=== PATIENT | female | born 1995 | race Caucasian/White ===

== ENCOUNTER 2017-09-18 08:34 | Emergency (ER) | payer BC, OTHER, SELFPAY ==
[2017-09-18] MEDS ORDERED: Ondansetron HCl/PF 4 MG/2 ML Vial ONE (09:06)
[2017-09-18 09:07] LABS: #Basophils 0.1 thou/uL (0.0-0.2); #Eosinphils 0.1 thou/uL (0.0-0.7); #Lymphocytes 2.6 thou/uL (1.20-3.40); #Neutrophils 7.1 thou/uL (1.40-6.50); %Basophils 0.8 % (0.0-1.0); %Eosinophils 1.1 % (0.0-10.0); %Lymphocytes 23.8 % (28.0-48.0); %Monocytes 8.9 % (0.0-4.0); Mean Platelet Volume 6.6 fL (7.4-10.4); Red Blood Cell (RBC) Count 4.96 mill/uL (4.00-5.20); White Blood Cell (WBC) Count 10.9 thou/uL (4.8-10.8)
[2017-09-18] MEDS ORDERED: Morphine 10 MG/ML VIAL ONE (09:07)
[2017-09-18 09:22] LABS: ALT (SGPT) 12 U/L (8-55); AST (SGOT) 14 U/L (5-30); Alkaline Phosphatase 71 U/L (40-150); Anion Gap 13 mmol/L (10-20); BUN (Urea Nitrogen) 10 mg/dL (8.4-21.0); Bilirubin, Total 0.3 mg/dL (0.2-1.2); Calc. Creatinine Clearance 0 mL/min (70-130); Calcium 9.3 mg/dL (7.8-10.44); Carbon Dioxide 18 mmol/L (22-29); Chloride 107 mmol/L (98-107); Estimated GFR-MDRD Greater than 90; Globulin 2.9 g/dL (2.4-3.5); Protein, Total 6.8 g/dL (6.0-8.3)
[2017-09-18 09:51] LABS: Lactic Acid - Sepsis 1.2 mmol/L (0.5-2.2)
[2017-09-18 11:19] LABS: Bilirubin Negative (Negative); Blood, Urine Negative (Negative); Glucose, Urine (Dipstick) Negative (Negative); Ketone, Urine Negative (Negative); Nitrite Negative (Negative); Protein, Urine (Dipstick) Negative (Neg-Trace); Urobilinogen 0.2 mg/dL (0.2-1.0)
[2017-09-18 11:22] LABS: Bacteria/HPF Rare-Few HPF (None Seen); Hyaline Casts/LPF 0-3 HYALINE CAST LPF (0-3 Hyaline); RBC/HPF 0-3 HPF (0-3); Squamous Epithelial 0-3 HPF (0-3); WBC/HPF 0-3 HPF (0-3)
--- NOTE | 2017-09-18 11:32 | CT ---
CT OF ABDOMEN AND PELVIS: Date: 09-18-17 Comparison: None. History: 21-year-old female with generalized abdominal pain. Technique: Serial axial CT imaging obtained at 5 mm intervals from the lung bases through the pubic symphysis with IV contrast. Coronal reformatted imaging obtained. FINDINGS: The lack of oral contrast limits assessment of the bowel. The appendix is visualized and appears wit hin normal limits. The imaged lung bases are unremarkable. No free intraperitoneal air or fluid seen. There is a tiny f at containing umbilical hernia. There is a small focal area of hypodensity within the ventral aspect of the left lobe of the liver a long the falciform ligament on image 27 suggesting a focal area of fatty infiltration. The gallbladd er, spleen, pancreas, adrenal glands, and kidneys are unremarkable. There is significant stool within the sigmoid colon and rectum. There is small volume fluid noted wi thin nondilated loops of distal small bowel. No evidence for small or large bowel obstruction. There is low density/liquid appearing material within the colon from the cecum to the level of the s plenic flexure. The vascular structures of the abdomen/pelvis appear patent. No pelvic retroperitonea or mesenteric lymphadenopathy is seen. The patient's reported NuvaRing is noted. The osseous structures demonstrate no acute findings. IMPRESSION: No evidence for small bowel obstruction or free intraperitoneal air. Significant stool is seen withi n the distal colon. Liquid material seen within the proximal colon and distal small bowel may repres ent a diarrheal illness. POS: [facility]
[2017-09-18] MEDS ORDERED: ISOVUE-370 76%-LOCM 1 ML ONE (15:50)
== END 2017-09-18 12:06 | disposition home or self-care (01) ==
LOC: ERS 08:34
DX: K52.9 Noninfective gastroenteritis and colitis, unspecified (principal); Z87.891 Personal history of nicotine dependence
CPT/HCPCS: 36415; 74177; 80053; 81003; 81015; 81025; 83605; 84703; 85025; 87015; 87045; 87046; 87328; 87329; 87449; 87480; 87491; 87510; 87591; 87660; 87899; 96361; 96374; 96375; J2270; J2405